=== PATIENT | female | born 1970 | race Two or more races ===

== ENCOUNTER 2025-03-14 22:06 | Emergency (ER) | payer MEDICAID, SELFPAY ==
[2025-03-14 22:07] VITALS: BMI 34.7
--- NOTE | 2025-03-14 22:19 | XR_ITS ---
Examination: PA lateral chest 2 views TECHNIQUE: Upright PA and lateral chest 2 views Date and time: March 14, 2025, 1056 hours INDICATIONS: Coughing one week with shortness of breath FINDINGS: Normal heart size Lungs are clear. The osseous structures are intact IMPRESSION: No active disease
[2025-03-14 22:46] VITALS: BP 179/71; PULSE 69; RESP 18; TEMP 37.2; O2SAT 99
--- NOTE | 2025-03-14 22:46 | PD.EDURI ---
Upper Respiratory Inf. RME/HPI General Chief Complaint: Flu Like Symptoms Stated Complaint: COUGH SOB Time Seen by Provider: 03/14/25 22:42 Arrival date/time: 03/14/25 22:06 54F with no significant PMH presents to ED with 1 week of cough and nasal congestion, as well as intermittent SOB. Sick contacts at home. Limitations: no limitations Related Data Previous Rx's ?Medication ?Instructions ?Recorded ibuprofen 600 mg tablet 600 mg PO Q8HR #30 tabs 10/11/17 ciprofloxacin HCl 500 mg tablet 500 mg PO BID #14 tabs 07/16/24 (Cipro) Allergies Allergy/AdvReac Type Severity Reaction Status Date / Time No Known Allergies Allergy Verified 03/14/25 22:11 Review of Systems Review of Systems Systems Reviewed: All systems reviewed, normal except as documented Constitutional Constitutional: Reports system reviewed and no additional complaints, except as documented, Denies fever(s) and Denies headache(s) ENT Ears, Nose, Mouth, and Throat: Reports as per HPI, Denies disequilibrium, Denies headache(s) and Reports nasal congestion Cardiovascular Cardiovascular: Reports system reviewed and no additional complaints, except as documented, Denies chest pain and Reports dyspnea Respiratory Respiratory: Reports system reviewed and no additional complaints, except as documented, Reports as per HPI, Reports cough and Reports dyspnea Gastrointestinal Gastrointestinal: Reports system reviewed and no additional complaints, except as documented, Denies abdominal pain, Denies nausea and Denies vomiting Neurologic Neurologic: Reports system reviewed and no additional complaints, except as documented, Denies confusion, Denies disequilibrium and Denies headache(s) Psychiatric Psychiatric: Denies confusion Past Medical History Past Medical History CARDIAC: Negative Cardiac Disorders RESPIRATORY: Negative Asthma GENITOURINARY: Negative Renal Disease ENDOCRINE: Negative Diabetes Mellitus Type 2 HEMATOLOGIC: Negative Sickle Cell Disease Social History SMOKING STATUS: Never smoker ED Exam General Limitations: Present no limitations General appearance: Present alert and in no apparent distress Head Head exam: Present atraumatic Eye Eye exam: Present normal appearance, PERRL and EOMI ENT ENT exam: Present mucous membranes moist Expanded ENT Exam Throat exam: Present tonsillar erythema; Absent tonsillomegaly, tonsillar exudate, R peritonsillar mass, L peritonsillar mass or muffled voice Neck Neck exam: Present normal inspection, full ROM and trachea midline Chest Chest inspection: Present normal inspection and symmetric chest wall rise Respiratory Respiratory exam: Present normal lung sounds bilaterally Cardiovascular Cardiovascular exam: Present regular rate, normal rhythm and normal heart sounds Abdominal Exam Abdominal exam: Present soft and normal bowel sounds Extremities Exam Extremities exam: Present normal inspection and full ROM Back Exam Back exam: Present normal inspection and full ROM Neurological Exam Neurological exam: Present alert, oriented X3 and CN II-XII intact Psychiatric Psychiatric exam: Present normal affect and normal mood Skin Skin exam: Present warm, dry, intact and normal color Course Quality Measures none Orders Category Date Time Status Bedside COVID-19 Antigen Test NOW Care 03/14/25 22:19 Active Bedside Influenza A&B Antigen Test NOW Care 03/14/25 22:19 Completed XR chest 2V Stat Exams 03/14/25 22:19 Completed DiphenhydrAMINE [Benadryl] Med 03/14/25 23:33 Once 25 mg PO X1 ONE Vital Signs Vital signs: Vital Signs Temperature 98.9 F 03/14/25 22:46 Pulse Rate 69 03/14/25 22:46 Respiratory Rate 18 03/14/25 22:46 Blood Pressure 179/71 H 03/14/25 22:46 Pulse Oximetry (%) 99 03/14/25 22:46 Oxygen Delivery Method Room Air 03/14/25 22:46 O2 at 99% on RA and WNLs Upper Respiratory Infection MDM Narrative MDM Narrative:: 54F with no significant PMH presents to ED with 1 week of cough and nasal congestion, as well as intermittent SOB. Sick contacts at home. Physical exam reveals red oropharynx, but clear lungs. Normal WOB. Patient is afebrile, calm, and alert. Swabs neg. CXR normal. Likely viral URI. Patient data External records reviewed:: [facility] previous records Clinical information provided by:: patient Social determinants that could affect healthcare access:: none Patient has the following chronic illnesses:: none How is presenting disease/condition affected by chronic disease/condition?: no chronic disease Evaluation data The following diagnostics were reviewed and interpreted by me:: lab results and radiology exam(s) Lab and/or radiology exams considered but not ordered:: ordered Interpretation Summary: above Medications / Prescriptions Medications or Prescriptions considered but not ordered:: ordered Medication administrations:: Medication Administration History Diphenhydramine HCl (Diphenhydramine 25 Mg Capsule) 25 mg PO X1 ONE Stop: 03/14/25 23:34 above Consultations Consultation(s) initiated? (list below): No Diagnosis Upper Respiratory Differential Diagnosis: upper respiratory infection, croup, otitis media, sinusitis, viral infection, bronchitis, influenza and pharyngitis Most likely diagnosis given after review of the tests above:: URI Admission Indicated Admission indicated?: not indicated Admission Request Was there a request for admission?: No Disposition Plan Disposition Plan: Discharge Discharge Attestation Discharge Attestation: The patient and all family members were given an opportunity to ask questions and understood the discharge instructions. Discharge instructions specifically effects, indications for sooner follow up or return to the emergency department, and the expected course of current diagnosis. Patient condition: Stable Discharge Plan Plan Patient Disposition: HOME (Self Care) Discharge Disposition comment: Stable Prescriptions/Referrals Prescriptions/Med Rec: No Action ibuprofen 600 MG tablet 600 mg PO Q8HR Qty: 30 0RF ciprofloxacin HCl [Cipro] 500 mg tablet 500 mg PO BID Qty: 14 0RF Referrals: Zac Diaz MD [Primary Care Provider] - In 1 week Problem List Clinical Impression: Upper respiratory infection Patient/Caregiver Discharge Instructions Education Materials: ED URI, Viral, No Abx (Adult) Additional Instructions: Please follow-up with PCP within 24-48 hours and return immediately if symptoms worsen. Ibuprofen/Tylenol can be used simultaneously for greater fever/pain control. Benadryl is good for cough, congestion, and sleep. Print Language: Frisian Stand Alone Forms: Patient Portal Info Letter PA/MANUSCRIPT EDITOR Supervising Physician PROMISE/MANUSCRIPT EDITOR Supervising Physician: Dr. Sandoval
[2025-03-14] MEDS: DiphenhydrAMINE 25 MG CAPSULE PO (23:43)
== END 2025-03-15 01:31 | disposition home or self-care (01) ==
PROVIDERS: Emergency Provider Emergency Medicine; PCP Family Medicine
DX: J06.9 Acute upper respiratory infection, unspecified (principal)
CPT/HCPCS: 71046; 87400; 87811; 99283; A9270

== ENCOUNTER 2025-04-04 12:45 | Emergency (ER) | payer MEDICAID, SELFPAY ==
[2025-04-04 12:46] VITALS: BMI 34.7
[2025-04-04 13:23] VITALS: BP 139/87; PULSE 81; RESP 18; TEMP 36.6; O2SAT 96
--- NOTE | 2025-04-04 13:26 | XR_ITS ---
Examination: Duplex scan of the lower extremity, unilateral left Date and time of exam: April 04, 2025 at 1349 hours INDICATIONS: Left knee pain and swelling beginning 3 months ago Technique: Duplex scan of the extremity veins using B-mode/grayscale imaging and Doppler spectral analysis and color flow Attention is directed to internal echogenicity, compression and augmentation involving these veins, color flow assessment, spectral analysis Findings: Major deep venous structures in the extremity demonstrate normal course and caliber. There is no evidence of deep vein thrombosis. Normal color flow and spectral analysis Impression: Negative for DVT..
--- NOTE | 2025-04-04 13:26 | XR_ITS ---
Examination: Knee, left , 3 views Technique: Knee AP, lateral, oblique 3 views Date and time of exam: April 04, 2025 1324 hours INDICATIONS: Left knee pain beginning 4 days ago. FINDINGS: Moderate osteopenia. Mild to moderate tricompartment osteoarthritis. No fracture. Small knee effusion IMPRESSION: Mild to moderate tricompartment osteoarthritis
[2025-04-04 14:46] LABS: Uric Acid 8.9 mg/dL (3.1-7.8)
--- NOTE | 2025-04-04 15:10 | EDNOTE_ITS ---
Lower Extremity Injury RME/HPI General Chief Complaint: Extremity Injury, Lower Stated Complaint: PAIN L) KNEE, SWOLLEN Time Seen by Provider: 04/04/25 13:12 Arrival date/time: 04/04/25 12:45 54-year-old female presents to the emergency department for complaint of left knee pain patient reports pain worse with movement patient for swelling of the knee Limitations: no limitations Related Data Previous Rx's ?Medication ?Instructions ?Recorded ibuprofen 600 mg tablet 600 mg PO Q8HR #30 tabs 09/13 10/28 ciprofloxacin HCl 500 mg tablet 500 mg PO BID #14 tabs 07/16/24 (Cipro) colchicine 0.6 mg tablet 0.6 mg PO QDAY 1 day #1 tab 04/04/25 indomethacin 50 mg capsule 50 mg PO TID 5 days #15 cap s 04/04/25 prednisone 10 mg tablet 30 mg (3 x 10 mg) PO BID 3 d ays 04/04/25 #18 tabs Allergies Allergy/AdvReac Type Severity Reaction Status Date / Time No Known Allergies Allergy Verified 04/04/25 12:48 Review of Systems Review of Systems Systems Reviewed: All systems reviewed, normal except as documented Constitutional Constitutional: Reports system reviewed and no additional complaints, except as documented, Denies fever(s) and Denies headache(s) Eyes Eyes: Reports system reviewed and no additional complaints, except as documented and Denies blurry vision ENT Ears, Nose, Mouth, and Throat: Reports system reviewed and no additional co mplaints, except as documented, Denies headache(s), Denies nasal congestion and Denies nasal discharge Cardiovascular Cardiovascular: Reports system reviewed and no additional complaints, except as documented, Denies chest pain and Denies dyspnea Respiratory Respiratory: Reports system reviewed and no additional complaints, except as documented, Denies chest congestion, Denies cough and Denies dyspnea Gastrointestinal Gastrointestinal: Reports system reviewed and no additional complaints, except as documented and Denies abdominal pain Musculoskeletal Musculoskeletal: Reports system reviewed and no additional complaints, except as documented, Reports abnormal gait, Reports arthralgias, Denies deformity and Reports joint swelling Integumentary/Breasts Skin/Breast: Reports system reviewed and no additional complaints, except as documented and Denies rash Neurologic Neurologic: Reports system reviewed and no additional complaints, except as documented, Reports as per HPI, Reports abnormal gait and Denies headache(s) Past Medical History Past Medical History CARDIAC: Negative Cardiac Disorders RESPIRATORY: Negative Asthma GENITOURINARY: Negative Renal Disease ENDOCRINE: Negative Diabetes Mellitus Type 2 HEMATOLOGIC: Negative Sickle Cell Disease Social History SMOKING STATUS: Never smoker ED Exam General Limitations: Present no limitations General appearance: Present alert and in no apparent distress Head Head exam: Present atraumatic Eye Eye exam: Present normal appearance, PERRL and EOMI ENT ENT exam: Present normal exam, normal oropharynx and mucous membranes moist Neck Neck exam: Present normal inspection, full ROM and trachea midline Chest Chest inspection: Present normal inspection and symmetric chest wall rise Respiratory Respiratory exam: Present normal lung sounds bilaterally Cardiovascular Cardiovascular exam: Present regular rate, normal rhythm and normal heart sounds Abdominal Exam Abdominal exam: Present soft and normal bowel sounds Extremities Exam Extremities exam: Present full ROM, tenderness (Pain swelling), normal capillary refill and joint swelling; Absent pedal edema or calf tenderness Back Exam Back exam: Present normal inspection and full ROM Neurological Exam Neurological exam: Present alert, oriented X3 and CN II-XII intact Psychiatric Psychiatric exam: Present normal affect and normal mood Skin Skin exam: Present warm, dry, intact and normal color Course Quality Measures none Orders Category Date Time Status US venous doppler LE LT Stat Exams 04/04/25 13:26 Completed XR knee LT 3V Stat Exams 04/04/25 13:26 Completed Uric Acid Stat Lab 04/04/25 14:14 Completed Dexamethasone Inj [Decadron Inj] Med 04/04/25 15:13 Discontinued 10 mg PO X1 ONE Ketorolac Inj [Toradol Inj] Med 04/04/25 15:13 Discontinued 30 mg IM X1 ONE Vital Signs Vital signs: Vital Signs Temperature 98 F 04/04/25 13:23 Pulse Rate 81 04/04/25 13:23 Respiratory Rate 18 04/04/25 13:23 Blood Pressure 139/87 H 04/04/25 13:23 Pulse Oximetry (%) 96 04/04/25 13:23 Oxygen Delivery Method Room Air 04/04/25 13:23 O2 saturation 96% on room air with normal limits Extremity Injury, Lower MDM Narrative MDM Narrative:: 54-year-old female presents to the emergency department for complaint of left knee pain patient reports pain worse with movement patient for swelling of the knee On exam patient has pain and swelling of the left knee ongoing intermittently for a few months Imaging of left knee obtained ultrasounds negative for DVT X-ray of the left knee shows osteoarthritis Patient uric acid obtained came back elevated consistent with gout Patient medicated here discharged home with meds Patient discharged home in no distress to follow-up with primary care doctor in the next 24 to 48 hours and for any worsening symptoms to return to the ER immediately Patient data External records reviewed:: [facility] previous records Clinical information provided by:: patient Social determinants that could affect healthcare access:: none Patient has the following chronic illnesses:: None How is presenting disease/condition affected by chronic disease/condition?: no chronic disease Evaluation data The following diagnostics were reviewed and interpreted by me:: lab results and radiology exam(s) Lab and/or radiology exams considered but not ordered:: Labs and radiology obtain Interpretation Summary: Reviewed by me Medications / Prescriptions Medications or Prescriptions considered but not ordered:: Given Medication administrations:: Medication Administration History Discontinued Medications Dexamethasone Sodium Phosphate (Dexamethasone Sod Phos Inj 10 Mg/Ml Vial) 10 mg PO X1 ONE Stop: 04/04/25 15:14 Last Admin: 04/04/25 15:24 Dose: 10 mg Documented By: JOSE ANGEL Ketorolac Tromethamine (Ketorolac Inj 30 Mg/Ml Vial) 30 mg IM X1 ONE Stop: 04/04/25 15:14 Last Admin: 04/04/25 15:23 Dose: 30 mg Documented By: JOSE ANGEL Given Consultations Consultation(s) initiated? (list below): No Diagnosis Extremity Injury, Lower Differential Diagnosis: acute internal derangement of knee and other (Knee sprain, knee fracture) Most likely diagnosis given after review of the tests above:: Knee sprain Admission Indicated Admission indicated?: not indicated Admission Request Was there a request for admission?: No Disposition Plan Disposition Plan: Discharge Discharge Attestation Discharge Attestation: The patient and all family members were given an opportunity to ask questions and understood the discharge instructions. Discharge instructions specifically effects, indications for sooner follow up or return to the emergency department, and the expected course of current diagnosis. Patient condition: Stable Discharge Plan Plan Patient Disposition: HOME (Self Care) Discharge Disposition comment: Stable Prescriptions/Referrals Prescriptions/Med Rec: New prednisone 10 mg tablet 30 mg PO BID 3 Days Qty: 18 0RF indomethacin 50 mg capsule 50 mg PO TID 5 Days Qty: 15 0RF Rx Instructions: administer with food or milk colchicine 0.6 mg tablet 0.6 mg PO QDAY 1 Days Qty: 1 0RF No Action ibuprofen 600 MG tablet 600 mg PO Q8HR Qty: 30 0RF ciprofloxacin HCl [Cipro] 500 mg tablet 500 mg PO BID Qty: 14 0RF Referrals: No Primary/Family,Physician [Primary Care Provider] - In 1 week Problem List Clinical Impression: Acute gout of left knee, Osteoarthritis of left knee Patient/Caregiver Discharge Instructions Education Materials: ED Gout, ED Osteoarthritis, ED Gout Diet Additional Instructions: Please follow up with your primary care doctor in the next 24-48hrs for any worsening symptoms return here immediately Print Language: Mauritian Stand Alone Forms: Shanita Award Info., Patient Portal Info Letter PA/AUDIO PRODUCTION ENGINEER Supervising Physician PA/AUDIO PRODUCTION ENGINEER Supervising Physician: Dr peng
[2025-04-04] MEDS: KETOROLAC INJ 30 MG/ML VIAL IM (15:23)
[2025-04-04] MEDS: DEXAMETHASONE SOD PHOS INJ 10 MG/ML VIAL PO (15:24)
== END 2025-04-04 15:41 | disposition home or self-care (01) ==
PROVIDERS: Nurse Practitioner Primary Care; Emergency Provider Family Medicine
DX: M17.12 Unilateral primary osteoarthritis, left knee (principal); M10.9 Gout, unspecified
CPT/HCPCS: 36415; 73562; 84550; 87070; 87205; 93971; 96372; 99284; J1100; J1885